=== PATIENT | female | born 1970 | race Caucasian/White ===

== ENCOUNTER 2023-11-01 20:47 | Emergency (ER) | payer OTHER | END 2023-11-01 22:26 | disposition home or self-care (01) | LOC: JP.ED 20:47 | DX: K59.00 Constipation, unspecified (principal); I10 Essential (primary) hypertension; Z90.49 Acquired absence of other specified parts of digestive tract; Z90.710 Acquired absence of both cervix and uterus; Z79.899 Other long term (current) drug therapy; Z88.5 Allergy status to narcotic agent | CPT/HCPCS: 74019; 74019-26; 99283 ==